=== PATIENT | female | born 1955 | race African-American/Black ===

== ENCOUNTER 2017-05-14 07:48 | Day surgery (SDC) | END 2017-05-15 17:15 | disposition home or self-care (01) | DX: C50.911 Malignant neoplasm of unspecified site of right female breast (principal); E03.9 Hypothyroidism, unspecified; I10 Essential (primary) hypertension; E66.01 Morbid (severe) obesity due to excess calories; Z68.42 Body mass index [BMI] 45.0-49.9, adult | CPT/HCPCS: 19301; 38500; 38792; 71010; 80053; 85025; 85610; 85730; 88307; 88342; 93005; J0360; J0690; J1170; J1885; J2250; J2405; J2765; J3010; J3480; Z7512; Z7610 ==

== ENCOUNTER 2017-08-11 21:41 | Emergency (ER) | payer SELFPAY ==
[~2017-08-11] VITALS: Ht 167.6 cm; Wt 70.5 kg
[~2017-08-11 21:41] MED LIST: AMLO-147 PO; ASPI-664 PO; DOCU-144 PO; HYDR-906 PO; HYDR25TA6 PO; PANT40TA3 PO
[2017-08-11 21:49] VITALS: Ht 167.6 cm; Wt 70.5 kg
[2017-08-11 22:54] VITALS: BP 103/72; PULSE 119; RESP 20
== END 2017-08-11 22:58 | disposition left against medical advice (07) ==
LOC: E/R 21:41
DX: Z53.21 Procedure and treatment not carried out due to patient leaving prior to being seen by health care provider (principal)

== ENCOUNTER 2018-05-21 14:41 | Emergency (ER) | END 2018-05-21 21:24 | disposition home or self-care (01) ==